=== PATIENT | male | born 1985 | race Caucasian/White ===

== ENCOUNTER 2017-06-23 21:28 | Emergency (ER) | payer OTHER ==
[2017-06-23 21:45] VITALS: BP 150/99; PULSE 91; RESP 28; O2SAT 98
--- NOTE | 2017-06-23 21:48 | ED.REPORT ---
HPI-General Illness Date of Service Jun 23, 2017 ED Provider: Dr. High Pt is a 31 year old male with a history of similar symptoms who is brought to the ED by police due to syncope. The pt was arrested this evening for a DUI, and per police experienced two episodes of syncope following hyperventilation while in custody. He was confused and disoriented when he woke. Paramedics evaluated the pt on scene and found him tachycardic but otherwise healthy. The pt admits to headache, recent stress, and increased heart rate when he is stressed, but denies nausea, vomiting, chest pain or focal weakness. Per pt's girlfriend, the pt has been experiencing similar episodes for two weeks but has refused to seek medical care. Nursing Notes Stated Complaint: FIT FOR SNF Chief Complaint: General Complaint Nursing Notes Reviewed: Yes Allergies: Coded Allergies: No Known Allergies (Unverified , 06/23/17) General Time Seen by MD: 21:48 Chief Complaint Other (syncope) Hx Obtained From: Patient, Police Arrived By: Police Sudden in Onset?: Yes Onset Occurred: Just prior to arrival Symptom Duration: Intermittent Recent Healthcare: No recent doctor visit, No recent hospitalization Similar Sx Previous: No Past Medical History Past Medical History None reported Past Surgical History arm knee Smoking History Unknown if Ever Smoker Social History Drug Use: Meth, THC Ambulatory Status Independent Review of Systems Rapid heart rate Full Review of Systems Respiratory: Denies: Non-productive cough, Shortness of breath Cardiovascular: Denies: Chest pain GI: Denies: Nausea, Vomiting Musculoskeletal: Denies: Back pain, Neck pain Skin: Denies Rash Neurologic: Reports: Confusion, Headache, Syncope Psychiatric: Reports: Stress Complete sys rev & neg: except as marked. Physical Exam Vital Signs Vital Signs Date Time Temp Pulse Resp B/P Pulse Ox O2 Delivery O2 Flow Rate FiO2 06/23/17 21:45 36.5 91 28 150/99 98 Room Air Initial VS: Reviewed General/Constitutional: Awake, Alert, Cooperative Intoxicated Smells of alcohol Head / Eyes: Atraumatic, Normocephalic, PERRL, EOMI ENT: Atraumatic, Airway patent, Mucous membranes moist Neck: Atraumatic, Supple, Full range of motion, No JVD Respiratory / Chest: Atraumatic, Breath sounds NL, Breath sounds = bilat, No respiratory distress Cardiovascular: Heart rate NL, Regular rhythm, Heart sounds NL Abdomen: Atraumatic, Soft Tenderness/Guarding/Rebound: Positive: Tender LLQ... Back: Atraumatic, Full range of motion Upper Extremities Upper Extremity / MS: Atraumatic, Full range of motion Lower Extremity / Pelvis / MS: Atraumatic, Full range of motion Skin: Color NL, Warm, Dry Neurologic: Oriented X3, Speech NL, No motor deficits, No sensory deficits Interpretation & Diagnostics Lab Results Interpretation Result Diagram: 06/23/175 06/23/175 Test 06/23/17 22:45 06/23/17 22:58 White Blood Count 7.2th/mm3 (3.8-10.1) Red Blood Count 4.34mil/mm3 (4.40-5.80) Hemoglobin 14.9g/dL (13.8-17.2) Hematocrit 42.7% (41.0-50.0) Mean Corpuscular Volume 98.4fL (81-100) Mean Corpuscular Hemoglobin 34.3pg (27.0-35.0) Mean Corpuscular Hemoglobin Concent 34.9% (32.0-37.0) Red Cell Distribution Width 12.4% (12.3-15.4) Platelet Count 277bil/L (150-400) Neutrophils (%) (Auto) 56.3% (40-74) Lymphocytes (%) (Auto) 34.8% (14-46) Monocytes (%) (Auto) 6.8% (4-12) Eosinophils (%) (Auto) 0.7% (0-5) Basophils (%) (Auto) 0.7% (0-3) Prothrombin Time 9.7sec (8.1-12.5) Prothromb Time International Ratio 0.91ratio D-Dimer < 0.50mg/L FEU (<0.50) Sodium Level 139mEq/L (134-144) Potassium Level 4.7mEq/L (3.5-5.2) Chloride Level 104mEq/L (97-108) Carbon Dioxide Level 20mmol/L (18-29) Blood Urea Nitrogen 5mg/dL (6-20) Creatinine 0.65mg/dL (0.76-1.27) Estimat Glomerular Filtration Rate 152mL/min (>59) Glucose Level 102mg/dL (60-99) Calcium Level 9.0mg/dL (8.5-10.1) Magnesium Level 1.9mg/dL (1.6-2.6) Total Bilirubin 0.2mg/dL (0.0-1.2) Aspartate Amino Transf (AST/SGOT) 50U/L (0-50) Alanine Aminotransferase (ALT/SGPT) 58U/L (0-44) Alkaline Phosphatase 101U/L (25-150) Troponin T 0.010ug/L (0.0-0.011) Pro-B-Type Natriuretic Peptide 5.00pg/mL (0-86) Total Protein 7.5g/dL (6.4-8.4) Albumin 4.5g/dL (3.4-5.0) Lipase 47U/L (13-60) Thyroid Stimulating Hormone (TSH) 2.120uIU/mL (0.450-4.500) Free Thyroxine 1.26ng/dL (0.82-1.77) Alcohols 90mg/dL (0-10) Hold [place] Top Tube Received (Received) ECG Interpretation ECG Interpretation: normal sinus rhythm with a rate of 69 ventricular premature complex Time: 22:23 Interpreted by: ED physician X-Ray Chest Interpretation Chest Xray Interpretation: No cardiomegaly No acute findings View: 1 view Interpretation / Wet Read by: Interpret - ED physician CT Head Interpretation Impression: No CT evidence of hemorrhage, mass, or acute infarct. This report was transmitted to the emergency room at 06/24/2017- 12:11:54 AM PDT Study: Head CT no contrast Interpretation / Wet Read by: Interpret - Radiologist Re-Eval/Medical Decision Med Decision/Clinical Course 31-year-old presents with syncopal episode after being taken into custody for DUI. He clearly had a hyperventilation episode, but his had several similar episodes even prior to this episode and describes a headache. Evaluation for syncope here shows a normal cardiogram, normal CAT scan, and unremarkable labs. This appears to be hyperventilation is setting of stress and intoxication resulting in syncope. He is cleared fit for detention. Source of Hx: Old records Time of Eval: 23:44 Re-Evaluation/Progress Note: Pt rechecked. Discussed lab and radiology results. Time of Eval: 00:24 Patient Status: Condition improved Re-Evaluation/Progress Note: Pt rechecked. Informed pt of plan for discharge. Pt understands and agrees with plan. F/U instructions and RTER warnings given. All questions addressed. Counseled Regarding: Diagnosis, Lab results, Need for follow-up, When/why to return to ED Discharge & Departure Primary Impression: Hyperventilation syndrome Additional Impressions: Syncope Syncope type: unspecified Qualified Code: R55 - Syncope and collapse Medical clearance for incarceration Disposition: Home Discharge Condition All VS Reviewed: Yes Condition: Stable Patient Instructions: Syncope (ED) Additional Instructions: FIT FOR SNF This appears to be hyperventilation resulting in syncope. (Fainting) We find no other significant issues on your evaluation. Referrals: [facility] Scribe Attestation Portions of this note were transcribed by Katie Austin and Elmer Robin. I, personally performed the history, physical exam and medical decision- making; I reviewed and confirmed the accuracy of the information in the transcribed note. copies to: [facility] Hemanth High MD Jun 23, 2017 21:48 Katie Austin Jun 23, 2017 21:57 ELMER ROBIN Jun 23, 2017 22:21
[2017-06-23 22:51] LABS: BASOPHILS % (AUTO) 0.7 % (0-3); EOSINOPHILS % (AUTO) 0.7 % (0-5); MONOCYTES % (AUTO) 6.8 % (4-12); Mean Corpuscular Hemoglobin 34.3 pg (27.0-35.0); Mean Corpuscular Volume 98.4 fL (81-100); NEUTROPHILS % (AUTO) 56.3 % (40-74); Platelet Count 277 bil/L (150-400)
[2017-06-23 23:08] LABS: D-Dimer < 0.50 mg/L FEU (<0.50); INR 0.91 ratio
[2017-06-23 23:35] LABS: TROPONIN T 0.01 ug/L (0.0-0.011)
[2017-06-23 23:38] LABS: Magnesium 1.9 mg/dL (1.6-2.6)
--- NOTE | 2017-06-24 07:24 | DRSVH ---
PROCEDURE: CT BRAIN WITHOUT CONTRAST ([id number]) INDICATIONS: syncope, astudillo TECHNIQUE: Noncontrast 4.5 mm thick angled axial sections acquired from the foramen magnum to the vertex, with c oronal reformats. COMPARISON: None. FINDINGS: Image quality: Excellent. CSF spaces: Basal cisterns are patent. No extra-axial fluid collections. Ventricles are normal in size and shape. Brain: No midline shift. No intracranial masses or hemorrhage. Gastelum-white matter interface is norm al. Skull and face: Calvarium and visualized facial bones are intact, without suspicious lesions. Sinuses: Visualized sinuses and mastoids are clear. IMPRESSION: No CT evidence of acute intracranial pathology. There are no discrepancies with the preliminary report. Dictated by: Gabriel Mckoy M.D. on 06/24/2017 at 7:21 Approved by: Gabriel Mckoy M.D. on 06/24/2017 at 7:22
--- NOTE | 2017-06-24 07:37 | DRSVH ---
PROCEDURE: X-RAY CHEST ONE VIEW, PORTABLE ([id number]) INDICATIONS: syncope TECHNIQUE: One view of the chest was acquired. COMPARISON: None. FINDINGS: Surgical changes and devices: None. Lungs and pleura: No pleural effusions or pneumothorax. Lungs are clear. Mediastinum: Mediastinal contours appear normal. Heart size is normal. Bones and chest wall: No suspicious bony lesions. Overlying soft tissues appear unremarkable. IMPRESSION: No radiographic evidence of acute cardiopulmonary pathology. Dictated by: Gabriel Mckoy M.D. on 06/24/2017 at 7:35 Approved by: Gabriel Mckoy M.D. on 06/24/2017 at 7:35
== END 2017-06-24 00:20 ==
LOC: SED 21:28
DX: F45.8 Other somatoform disorders (principal); R55 Syncope and collapse; Z02.89 Encounter for other administrative examinations
CPT/HCPCS: 36415; 70450; 71010; 80053; 83690; 83735; 83880; 84439; 84443; 84484; 85025; 85378; 85610; 93005; 99285; G0480